=== PATIENT | male | born 1945 | race Caucasian/White ===

== ENCOUNTER 2016-08-31 17:56 | Emergency (ER) | payer OTHER ==
--- NOTE | 2016-08-31 20:38 | ED CLINICAL REPORT ---
Clinical Report - Physicians/Mid Levels [facility] [address] [place] [address] 08/31/2016 17:57 Patient: ANABELL CABRALES Time Seen: 18:18. Arrived- By private vehicle. Historian- patient. HISTORY OF PRESENT ILLNESS Chief Complaint: VISION PROBLEM. This started today, involves the right eye, is characterized as severe and is still present. The patient did not sustain an injury. No eye pain, eye discomfort, eye burning, eye redness or eye irritation. A non-traumatic, painless decrease in vision (described as darkening and blurriness ) involving the right eye (improving). ( patient initially tried to present to the local director of event management's office. However apparently that do and was sent to our emergency department afteran urgent care told him that his blood pressure was low.). REVIEW OF SYSTEMS No chills, fever, sweats, chest pain or abdominal pain. No constipation, diarrhea, nausea, vomiting or urinary problems. No headache. All systems otherwise negative, except as recorded above. PAST HISTORY Problems: Hypertension. Parkinson's Disease. Depression. Additional Surgeries: no known surgeries. Medications: Tirosint Oral (Capsule 75 mcg) 1 capsule. Lisinopril Oral (Tablet 20 mg), daily. Carbidopa-Levodopa Oral (Tablet 25-100 mg) 1 tablet, 3x a day. Amantadine HCl Oral (Capsule 100 mg) 1 capsule, 2x a day. Allergies: Magnesium. NSAIDs. 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 ADDITIONAL NOTES The nursing notes have been reviewed. PHYSICAL EXAM Vital Signs: 08/31/2016 18:00 BP: 126/75. HR: 87. RR: 21. O2 saturation: 100%. Temp: 98.3 F. Have been reviewed. Appearance: Alert. HEENT: Pharynx normal. Rt Eye: Pupil 3mm. Intraocular pressure (on 2 separate measurements with 95% confidence interval). No papilledema. No retinal hemorrhages or exudates present. Eyes: Visual acuity noted- see nurse's notes. Right eyelid everted for examination. Eyelids appear normal to inspection. Corneas appear normal to inspection. EOMs intact. Periorbital areas appear normal to inspection. No photophobia. Right eye examined with slit lamp. Anterior chambers of normal depth. ophthalmologic exam was moderately limited by the patient's Parkinsonian tremor. Lt Eye: Pupil irregular. Neck: Neck supple. Normal inspection. CVS: Normal heart rate and rhythm. Heart sounds normal. Respiratory: No respiratory distress. Breath sounds normal. Skin: No rash. Extremities: Extremities negative. Neuro: Mood/affect normal. LABS, X-RAYS, AND EKG EKG: Normal sinus rhythm. Rate: 87. RBBB. Prior EKG unavailable. The study has been independently viewed by me. PROGRESS AND PROCEDURES Course of Care: Patient is stable. Discussed case with on-call health care provider, (Tin - Opthamology - He does not feel that CT imaging would be useful. Given that the patient has maintained his left vision an occipital stroke is unlikely.). Reviewed test results and need for additional work-up. Health care provider will see patient in office. Patient/family counseled. Old medical records ordered. Old records unavailable. Disposition: Discharged. Condition: stable. 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 INSTRUCTIONS Warnings: Further evaluation is necessary. GENERAL WARNINGS: Return or contact your physician immediately if your condition worsens or changes unexpectedly, if not improving as expected, or if other problems arise. Your Current Medications: CONTINUE TAKING THE FOLLOWING MEDICATIONS: Amantadine HCl Oral : Capsule 100 mg, 1 capsule 2x a day. Carbidopa-Levodopa Oral : Tablet 25-100 mg, 1 tablet 3x a day. Lisinopril Oral : Tablet 20 mg, daily. Tirosint Oral : Capsule 75 mcg, 1 capsule. Understanding of the discharge instructions verbalized by patient. Follow-up with: Dylon Castle MD, Ophthalmology, , [facility], [address] [place] [address] Follow up tomorrow. Call for an appointment. (Electronically signed by Flavio Winter MD 08/31/2016 20:58)
--- NOTE | 2016-08-31 20:38 | ED CLINICAL REPORT ---
Clinical Report - Physicians/Mid Levels [facility] [address] [place] [address] 08/31/2016 17:57 Patient: ANABELL CABRALES Time Seen: 18:18. Arrived- By private vehicle. Historian- patient. HISTORY OF PRESENT ILLNESS Chief Complaint: VISION PROBLEM. This started today, involves the right eye, is characterized as severe and is still present. The patient did not sustain an injury. No eye pain, eye discomfort, eye burning, eye redness or eye irritation. A non-traumatic, painless decrease in vision (described as darkening and blurriness ) involving the right eye (improving). ( patient initially tried to present to the local industrial sales representative's office. However apparently that do and was sent to our emergency department afteran urgent care told him that his blood pressure was low.). REVIEW OF SYSTEMS No chills, fever, sweats, chest pain or abdominal pain. No constipation, diarrhea, nausea, vomiting or urinary problems. No headache. All systems otherwise negative, except as recorded above. PAST HISTORY Problems: Hypertension. Parkinson's Disease. Depression. Additional Surgeries: no known surgeries. Medications: Tirosint Oral (Capsule 75 mcg) 1 capsule. Lisinopril Oral (Tablet 20 mg), daily. Carbidopa-Levodopa Oral (Tablet 25-100 mg) 1 tablet, 3x a day. Amantadine HCl Oral (Capsule 100 mg) 1 capsule, 2x a day. Allergies: Magnesium. NSAIDs. 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 ADDITIONAL NOTES The nursing notes have been reviewed. PHYSICAL EXAM Vital Signs: 08/31/2016 18:00 BP: 126/75. HR: 87. RR: 21. O2 saturation: 100%. Temp: 98.3 F. Have been reviewed. Appearance: Alert. HEENT: Pharynx normal. Rt Eye: Pupil 3mm. Intraocular pressure (on 2 separate measurements with 95% confidence interval). No papilledema. No retinal hemorrhages or exudates present. Eyes: Visual acuity noted- see nurse's notes. Right eyelid everted for examination. Eyelids appear normal to inspection. Corneas appear normal to inspection. EOMs intact. Periorbital areas appear normal to inspection. No photophobia. Right eye examined with slit lamp. Anterior chambers of normal depth. ophthalmologic exam was moderately limited by the patient's Parkinsonian tremor. Lt Eye: Pupil irregular. Neck: Neck supple. Normal inspection. CVS: Normal heart rate and rhythm. Heart sounds normal. Respiratory: No respiratory distress. Breath sounds normal. Skin: No rash. Extremities: Extremities negative. Neuro: Mood/affect normal. LABS, X-RAYS, AND EKG EKG: Normal sinus rhythm. Rate: 87. RBBB. Prior EKG unavailable. The study has been independently viewed by me. PROGRESS AND PROCEDURES Course of Care: Patient is stable. Discussed case with on-call health care provider, (Tin - Opthamology - He does not feel that CT imaging would be useful. Given that the patient has maintained his left vision an occipital stroke is unlikely.). Reviewed test results and need for additional work-up. Health care provider will see patient in office. Patient/family counseled. Old medical records ordered. Old records unavailable. Disposition: Discharged. Condition: stable. 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 INSTRUCTIONS Warnings: Further evaluation is necessary. GENERAL WARNINGS: Return or contact your physician immediately if your condition worsens or changes unexpectedly, if not improving as expected, or if other problems arise. Your Current Medications: CONTINUE TAKING THE FOLLOWING MEDICATIONS: Amantadine HCl Oral : Capsule 100 mg, 1 capsule 2x a day. Carbidopa-Levodopa Oral : Tablet 25-100 mg, 1 tablet 3x a day. Lisinopril Oral : Tablet 20 mg, daily. Tirosint Oral : Capsule 75 mcg, 1 capsule. Understanding of the discharge instructions verbalized by patient. Follow-up with: Dylon Castle MD, Ophthalmology, , [facility], [address] [place] [address] Follow up tomorrow. Call for an appointment. (Electronically signed by Flavio Winter MD 08/31/2016 20:58)
--- NOTE | 2016-08-31 20:38 | ED ORDER SUMMARY ---
..... 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 per protocol) (18:33 LAbe R.N.) EKG - ER Stat (18:33 08/31/2016 LAbe R.N. per protocol) (18:33 LAbe R.N.) Vitals (18:33 08/31/2016 LAbe R.N. per protocol) (18:33 LAbe R.N.) - (Snellen Vision testing please) (18:35 08/31/2016 [place]) (18:37 LAbe R.N.) MEDICATION ORDERS: IV FLUIDS: IV Saline Lock (18:15 08/31/2016 LAbe R.N. per protocol) (18:15 LAbe R.N.) ORDER SHEET NOTES: [Electronically signed by Carin Ansari R.N. (20:49 08/31/2016)] [Electronically signed by Flavio Winter MD (20:58 08/31/2016)] [Electronically locked/signed by Carin Ansari R.N. (20:49 08/31/2016)]
--- NOTE | 2016-08-31 20:38 | ED NURSING NOTES ---
Clinical Report - Nurses [facility] [address] [place] [address] 08/31/2016 17:57 Patient: ANABELL CABRALES TRIAGE Triage time 1859. Acuity: LEVEL 3. Chief Complaint: BLOOD PRESSURE CHECK. LA NENA COMA SCORE: [place] Coma Scale: 15- eyes open spontaneously (4); best verbal response- oriented x 4 (5); best motor response- obeys commands (6). --18:11 Re Dennis R.N. 18:00 08/31/16. BP: 126/75. HR: 87. RR: 21. O2 saturation: 100%. Temp: 98.3 F. --18:11 Re Dennis R.N. Weight: 79.3 kg stated. Height/Length: 65 inches Per Patient. BMI: 29.1. --18:08 Re Dennis R.N. Medications Amantadine HCl Oral (Capsule 100 mg) 1 capsule, 2x a day. --18:34 Re Dennis R.N. Carbidopa-Levodopa Oral (Tablet 25-100 mg) 1 tablet, 3x a day. --18:35 Re Dennis R.N. Lisinopril Oral (Tablet 20 mg), daily. --18:35 Re Dennis R.N. Tirosint Oral (Capsule 75 mcg) 1 capsule. --18:36 Re Dennis R.N. Medication/allergy information source: the patient and patient's spouse. --18:11 Re Dennis R.N. Allergies NSAIDs. --18:36 Re Dennis R.N. Magnesium. --18:36 Re Dennis R.N. History Arrived by private vehicle. Historian: patient and family. Accompanied by family. Primary physician (jerilyn). This started today. ( patient at doctor this afternoon due to loss of vision in right eye and his BP was too low. Unsure what measurement was. No dizzyness, faint.). 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 PAST MEDICAL HX: Hypertension. No history of diabetes mellitus. Immunizations: up-to-date. SURGERY HX: No history of previous surgery. SOCIAL HX: Former smoker (cigarette). No infectious disease exposure. SELF HARM ASSESSMENT: A self harm assessment was performed. The patient answered "no" to the question "Do you have thoughts of harming or killing yourself?" and "Are you here because you tried to hurt yourself?". FALL RISK ASSESSMENT: Fall risk assessment completed. No fall risk identified. NUTRITIONAL RISK ASSESSMENT: The nutritional risk assessment revealed no deficiencies. FUNCTIONAL ASSESSMENT: Functional assessment: no impairments noted. LEARNING NEEDS ASSESSMENT: The learning needs assessment revealed no barriers. SKIN INTEGRITY ASSESSMENT: Skin integrity risk assessment completed. No skin integrity risk identified. --18:11 Re Dennis R.N. PROBLEMS: Hypertension. Parkinson's Disease. Depression. --18:08 Re Dennis R.N. ADDITIONAL SURGERIES: no known surgeries. Interventions ID band on patient. To treatment room. --18:11 Re Dennis R.N. PHYSICAL ASSESSMENT GENERAL / NEURO / PSYCH: Alert. Oriented X 4. Appears in no acute distress. RESPIRATORY: Respirations not labored. CVS: Pulses within normal limits. GI / : Abdomen soft and nontender. SKIN: Skin intact. Skin is warm and dry. --18:13 Re Dennis R.N. NURSING PROGRESS NOTES Monitoring of patient in place. EKG was performed by a tech and shown to the ED physician. Patient ID band checked for patient name and birthdate: patient confirmed. Blood samples drawn by nurse per protocol ; labeled in presence of the patient and sent to lab: rainbow set. Patient gowned. Head of bed elevated. Two patient identifiers checked. Call light placed in reach. Side rails up x 2. Bed placed in lowest position. Brakes of bed on. Patient ready for evaluation- chart flagged. --18:14 Re Dennis R.N. 18:10 08/31/2016 Site #1 started via IV in the right forearm with an 20g angiocath; one attempt. Blood drawn: rainbow set. Saline lock flushed with 5 mL saline. --18:15 Re Dennis R.N. EKG time: (1808). EKG was ordered, performed by a tech and shown to the ED physician. --18:26 Wilton Reyes ER Tech1 18:44 08/31/16. VISUAL ACUITY: Visual acuity performed with corrective lenses: left eye 20/50; right eye 20/200; both eyes 20/50. Patient wears corrective lenses. --18:44 Shawanda Mcmahan 18:44 08/31/16. VISUAL ACUITY: Visual acuity performed without corrective lenses: left eye 20/70; right eye 20/200; both eyes 20/50 minus one letter. Patient normally wears corrective lenses. --18:44 Shawanda Mcmahan Care transferred and report given (Carin RN). --19:03 Re Dennis R.N. Care transferred and report received. --19:09 Carin Ansari R.N. The patient is calm and resting quietly. Overall patient status is the same- he states feels the same. --19:15 Carin Ansari R.N. DISPOSITION / DISCHARGE 20:48 08/31/2016 Site #1 removed upon discharge. Catheter intact. Manual pressure and bandage applied. --20:48 Carin Ansari R.N. Condition at departure: unchanged and stable. No learning barriers present. Discharge instructions provided and reviewed with the patient and spouse. Follow up contact number. Patient and spouse verbalized understanding. Written instructions provided in Yi. The patient was discharged home and accompanied by spouse. He left the Emergency Department in a wheelchair and via private vehicle. Spouse driving. --20:49 Carin Ansari R.N. 20:48 08/31/16. BP: 97/61. HR: 95. RR: 16. O2 saturation: 100% on room air. Temp: deferred. Turner-Cantu pain scale: 4/10. --20:49 Carin Ansari R.N. Locked/Released at 08/31/2016 20:49 by Carin Ansari R.N.
--- NOTE | 2016-08-31 20:38 | ED ORDER SUMMARY ---
..... 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 per protocol) (18:33 LAbe R.N.) EKG - ER Stat (18:33 08/31/2016 LAbe R.N. per protocol) (18:33 LAbe R.N.) Vitals (18:33 08/31/2016 LAbe R.N. per protocol) (18:33 LAbe R.N.) - (Snellen Vision testing please) (18:35 08/31/2016 [place]) (18:37 LAbe R.N.) MEDICATION ORDERS: IV FLUIDS: IV Saline Lock (18:15 08/31/2016 LAbe R.N. per protocol) (18:15 LAbe R.N.) ORDER SHEET NOTES: [Electronically signed by Carin Ansari R.N. (20:49 08/31/2016)] [Electronically signed by Flavio Winter MD (20:58 08/31/2016)] [Electronically locked/signed by Carin Ansari R.N. (20:49 08/31/2016)]
--- NOTE | 2016-08-31 20:58 | ED DISCHARGE INSTRUCTIONS ---
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 INSTRUCTIONS Warnings: Further evaluation is necessary. GENERAL WARNINGS: Return or contact your physician immediately if your condition worsens or changes unexpectedly, if not improving as expected, or if other problems arise. Your Current Medications: CONTINUE TAKING THE FOLLOWING MEDICATIONS: Amantadine HCl Oral : Capsule 100 mg, 1 capsule 2x a day. Carbidopa-Levodopa Oral : Tablet 25-100 mg, 1 tablet 3x a day. Lisinopril Oral : Tablet 20 mg, daily. Tirosint Oral : Capsule 75 mcg, 1 capsule. Understanding of the discharge instructions verbalized by patient. Follow-up with: Dylon Castle MD, Ophthalmology, , [facility], [address] [place] [address] Follow up tomorrow. Call for an appointment. ADDITIONAL INFORMATION Glaucoma, Open Angle(Chronic) The eye is a fluid-filled globe with a lens in the front and a light-sensitive screen in the back (retina).The optic nerve conducts light signals from the retina to the brain and allows you to see visual images. Eye fluid is constantly produced within the eye and excess fluid drains out into the bloodstream. Open-angle glaucoma is a condition where the fluid pressure in the eye gradually increases and reduces blood flow to the optic nerve. This causes a gradual loss of vision, which may progress to complete blindness if not treated. The cause for glaucoma is not known. Open-angle glaucoma is painless. The first symptoms may be loss of peripheral (side) vision. Since most people dont pay much attention to their peripheral vision, you may have a lot of vision loss before you become aware of the problem. The vision loss is permanent. Open-angle glaucoma can be treated with eyedrops, surgery, and sometimes pills, to lower the pressure in the eye. Treatment is usually successful at keeping pressures low and preventing further vision loss. However, the condition cannot be cured. You will need to receive treatment for the rest of your life. Regular follow-up care with an machine programmer (a medical doctor who specializes in eye care) is very important to follow your response to the medicines. Home Care Take prescribed medicines exactly as directed. The eye needs certain vitamins and minerals for good healthespecially vitamins A, C, and E, as well as zinc and copper. Eat a healthy diet full of fruits and vegetables to ensure that you get enough of these nutrients. If you have trouble following a balanced diet, consider taking a vitamin and mineral supplement. Drink 6-8 glasses of water in the course of a day. Drinking too much at one time (more than 1 quart) may increase eye pressure. Limit the amount of caffeine that you drink. Regular exercise (3 times a week) may help reduce eye pressure. Avoid exercise positions with your head below your waist (such as bending over).This position will increase eye pressure.Talk to your doctor about an appropriate exercise program for you. Protect your eyes. An eye injury can cause increased eye pressure. Wear safety glasses or goggles when you play sports, use tools or machinery, or work with chemicals. Follow Up with your eye doctor as advised by our staff. Regular appointments will help make sure that your treatment is helping to keep your eyes at a safe pressure. NOTE: Since open-angle glaucoma tends to run in families, other family members over the age of 40 should be examined by an eye doctor. Get Prompt Medical Attention if any of the following occur: Further loss of peripheral vision Blurred vision Eye pain or redness Severe headache [place] halos around lights Sudden loss of vision You have been given the following additional information: Glaucoma, Open Angle (Chronic) (Electronically signed by Flavio Winter MD 08/31/2016 20:58)
--- NOTE | 2016-08-31 20:58 | ED MAR SUMMARY ---
..... Medication Administration Record [address] [place], [place] [id number] Patient: ANABELL CABRALES Visit ID: [id number] 71y, M Weight: 79.3 kg Height/Length: 65 in BMI: 29.1 ALLERGIES: Magnesium, NSAIDs
--- NOTE | 2016-08-31 20:58 | ED MED RECONCILIATION SUMMARY ---
Patient: ANABELL CABRALES Medication Reconciliation Report [facility] VisitID: [id number] [address] [place] [address] 71y, M Registration Date/Time: 08/31/2016 Weight: 79.3 kg Height/Length: 65 in. BMI: 29.1 ALLERGIES: Magnesium, NSAIDs The patient's Home Medications are listed below: CONTINUE TAKING THE FOLLOWING MEDICATIONS: Amantadine HCl Oral (100 mg) 1 capsule, 2x a day Carbidopa-Levodopa Oral (25-100 mg) 1 tablet, 3x a day Lisinopril Oral (20 mg), daily Tirosint Oral (75 mcg) 1 capsule The source(s) of the original Home Medication information: patient patient's spouse The following Medications were given to the patient in the Emergency Department: None. The following Medications were prescribed to the patient: None.
--- NOTE | 2016-08-31 20:58 | ED MED RECONCILIATION SUMMARY ---
Patient: ANABELL CABRALES Medication Reconciliation Report [facility] VisitID: [id number] [address] [place] [address] 71y, M Registration Date/Time: 08/31/2016 Weight: 79.3 kg Height/Length: 65 in. BMI: 29.1 ALLERGIES: Magnesium, NSAIDs The patient's Home Medications are listed below: CONTINUE TAKING THE FOLLOWING MEDICATIONS: Amantadine HCl Oral (100 mg) 1 capsule, 2x a day Carbidopa-Levodopa Oral (25-100 mg) 1 tablet, 3x a day Lisinopril Oral (20 mg), daily Tirosint Oral (75 mcg) 1 capsule The source(s) of the original Home Medication information: patient patient's spouse The following Medications were given to the patient in the Emergency Department: None. The following Medications were prescribed to the patient: None.
--- NOTE | 2016-08-31 20:58 | ED DISCHARGE INSTRUCTIONS ---
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 INSTRUCTIONS Warnings: Further evaluation is necessary. GENERAL WARNINGS: Return or contact your physician immediately if your condition worsens or changes unexpectedly, if not improving as expected, or if other problems arise. Your Current Medications: CONTINUE TAKING THE FOLLOWING MEDICATIONS: Amantadine HCl Oral : Capsule 100 mg, 1 capsule 2x a day. Carbidopa-Levodopa Oral : Tablet 25-100 mg, 1 tablet 3x a day. Lisinopril Oral : Tablet 20 mg, daily. Tirosint Oral : Capsule 75 mcg, 1 capsule. Understanding of the discharge instructions verbalized by patient. Follow-up with: Dylon Castle MD, Ophthalmology, , [facility], [address] [place] [address] Follow up tomorrow. Call for an appointment. ADDITIONAL INFORMATION Glaucoma, Open Angle(Chronic) The eye is a fluid-filled globe with a lens in the front and a light-sensitive screen in the back (retina).The optic nerve conducts light signals from the retina to the brain and allows you to see visual images. Eye fluid is constantly produced within the eye and excess fluid drains out into the bloodstream. Open-angle glaucoma is a condition where the fluid pressure in the eye gradually increases and reduces blood flow to the optic nerve. This causes a gradual loss of vision, which may progress to complete blindness if not treated. The cause for glaucoma is not known. Open-angle glaucoma is painless. The first symptoms may be loss of peripheral (side) vision. Since most people dont pay much attention to their peripheral vision, you may have a lot of vision loss before you become aware of the problem. The vision loss is permanent. Open-angle glaucoma can be treated with eyedrops, surgery, and sometimes pills, to lower the pressure in the eye. Treatment is usually successful at keeping pressures low and preventing further vision loss. However, the condition cannot be cured. You will need to receive treatment for the rest of your life. Regular follow-up care with an counter caser (a medical doctor who specializes in eye care) is very important to follow your response to the medicines. Home Care Take prescribed medicines exactly as directed. The eye needs certain vitamins and minerals for good healthespecially vitamins A, C, and E, as well as zinc and copper. Eat a healthy diet full of fruits and vegetables to ensure that you get enough of these nutrients. If you have trouble following a balanced diet, consider taking a vitamin and mineral supplement. Drink 6-8 glasses of water in the course of a day. Drinking too much at one time (more than 1 quart) may increase eye pressure. Limit the amount of caffeine that you drink. Regular exercise (3 times a week) may help reduce eye pressure. Avoid exercise positions with your head below your waist (such as bending over).This position will increase eye pressure.Talk to your doctor about an appropriate exercise program for you. Protect your eyes. An eye injury can cause increased eye pressure. Wear safety glasses or goggles when you play sports, use tools or machinery, or work with chemicals. Follow Up with your eye doctor as advised by our staff. Regular appointments will help make sure that your treatment is helping to keep your eyes at a safe pressure. NOTE: Since open-angle glaucoma tends to run in families, other family members over the age of 40 should be examined by an eye doctor. Get Prompt Medical Attention if any of the following occur: Further loss of peripheral vision Blurred vision Eye pain or redness Severe headache Leon halos around lights Sudden loss of vision You have been given the following additional information: Glaucoma, Open Angle (Chronic) (Electronically signed by Flavio Winter MD 08/31/2016 20:58)
--- NOTE | 2016-08-31 20:58 | ED MAR SUMMARY ---
..... Medication Administration Record [facility] [address] [place], [place] [id number] Patient: ANABELL CABRALES Visit ID: [id number] 71y, M Weight: 79.3 kg Height/Length: 65 in BMI: 29.1 ALLERGIES: Magnesium, NSAIDs
== END 2016-08-31 20:46 | disposition home or self-care (01) ==
LOC: ED SRH 17:56
DX: H40.1110 Primary open-angle glaucoma, right eye, stage unspecified (principal); I10 Essential (primary) hypertension; G20 Parkinson's disease; Z79.899 Other long term (current) drug therapy; Z87.891 Personal history of nicotine dependence; Z88.6 Allergy status to analgesic agent; Z88.8 Allergy status to other drugs, medicaments and biological substances
CPT/HCPCS: 90074